=== PATIENT | male | born 1930 | race Caucasian/White ===

== ENCOUNTER 2017-12-24 21:38 | Emergency (ER) | payer MEDICARE, OTHER ==
[~2017-12-24] VITALS: Ht 177.8 cm; Wt 68.0 kg
[~2017-12-24 21:38] MED LIST: ASPIRIN325 MG PO; CLONIDINE HCL0.2 MG PO; LISINOPRIL10 MG PO; LOSARTAN-HCTZ1 EACH PO; LOVASTATIN20 MG PO; METFORMIN HCL1000 MG PO; METOPROLOL TAR100 MG PO; NORVASC5 MG PO; TAMSULOSIN HCL0.4 MG PO; ULTRAM 50MG50 MG PO; ZOLPIDEM TARTRAT5 MG PO
--- NOTE | 2017-12-24 22:48 | Diagnostic Imaging Report ---
History:Fall Comparison studies:None Technique: Axial images were obtained from the skull base to the vertex. Coronal and sagittal images reconstructed from the axial data. Intravenous contrast: None Findings: Scalp/skull: No abnormalities. Extra-axial spaces: No masses. No fluid collections. Brain sulci: Moderately prominent. Ventricles: Moderate compensatory dilatation. No hydrocephalus. Parenchyma: Ill defined confluent hypodensities in the supratentorial white matter are small vessel ischemic changes. Cortical encephalomalacic changes (left prefrontal and inferior precentral and lateral parieto-occipital) arteries both of peripheral MCA vascular insult No masses, hemorrhage, acute or additional chronic cortical vascular insults. Sellar/suprasellar region: No abnormalities. Craniocervical junction: Patent foramen magnum. No Chiari one malformation. Incidental findings: Atherosclerotic calcifications in the carotid siphons and vertebral arteries.. Impression: No acute abnormalities. Chronic findings: 1. Moderate generalized volume loss. 2. Diffuse supratentorial white matter small vessel ischemic changes. 3. 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 Jame Eden M.D. on 12/24/2017 10:44 PM
--- NOTE | 2017-12-24 22:52 | Diagnostic Imaging Report ---
History: Trauma Comparison studies: None Technique: Axial images were obtained through the cervical region.. Coronal and sagittal images reconstructed from the axial data.. Intravenous contrast: None Findings: Fractures: None. Soft tissues: No gross abnormalities. Atlantoaxial articulation: Intact. Alignment: Normal lordosis. No scoliosis. Cervicomedullary junction: No abnormalities. The foramen magnum is patent. Vertebrae: The bones are diffusely demineralized No infection or neoplasm. 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 Mild spinal canal stenosis at C3-4, moderate at C4-5 due to disc osteophyte complexes. Incidental atherosclerotic calcifications in the subclavian arteries and carotid bulbs IMPRESSION: 1. No acute abnormalities. No fractures 2. Cannot adequately evaluate for ligament, spinal cord and or vascular abnormalities. 3. Degenerative changes as described Signed by: Dr. Jame Eden M.D. on 12/24/2017 10:48 PM
== END 2017-12-25 00:33 | disposition home or self-care (01) ==
LOC: ER 21:38
DX: S01.01XA Laceration without foreign body of scalp, initial encounter (principal); Y92.003 Bedroom of unspecified non-institutional (private) residence as the place of occurrence of the external cause; W01.190A Fall on same level from slipping, tripping and stumbling with subsequent striking against furniture, initial encounter
CPT/HCPCS: 70450; 72125; 99283

== ENCOUNTER 2019-04-29 15:48 | Outpatient (RCR) | payer MEDICARE | END 2019-05-02 | LOC: PT 15:48 | PROVIDERS: ATTEND Specialist | DX: Z96.651 Presence of right artificial knee joint (principal); M25.561 Pain in right knee; M62.81 Muscle weakness (generalized); R26.2 Difficulty in walking, not elsewhere classified ==

== ENCOUNTER 2019-05-29 14:00 | Outpatient (RCR) | payer MEDICARE | END 2019-06-01 | LOC: PT 14:00 | PROVIDERS: ATTEND Specialist | DX: Z96.651 Presence of right artificial knee joint (principal); M25.561 Pain in right knee | CPT/HCPCS: 97139 ==

== ENCOUNTER 2019-06-05 14:00 | Outpatient (RCR) | payer MEDICARE | END 2019-07-02 | LOC: PT 14:00 | PROVIDERS: ATTEND Specialist | DX: Z96.651 Presence of right artificial knee joint (principal); M25.561 Pain in right knee; M62.81 Muscle weakness (generalized); R26.2 Difficulty in walking, not elsewhere classified ==

== ENCOUNTER 2021-01-14 19:44 | Emergency (ER) | payer MEDICARE ==
[~2021-01-14] VITALS: Ht 177.8 cm; Wt 68.0 kg
[2021-01-14 23:09] VITALS: BP 152/82
== END 2021-01-14 23:10 | disposition home or self-care (01) ==
LOC: ER 21:50
DX: S51.812A Laceration without foreign body of left forearm, initial encounter (principal); W22.01XA Walked into wall, initial encounter; Y93.01 Activity, walking, marching and hiking; I10 Essential (primary) hypertension; E11.9 Type 2 diabetes mellitus without complications; I25.10 Atherosclerotic heart disease of native coronary artery without angina pectoris; D64.9 Anemia, unspecified; H35.30 Unspecified macular degeneration; Z86.73 Personal history of transient ischemic attack (TIA), and cerebral infarction without residual deficits
CPT/HCPCS: 99283